=== PATIENT | female | born 1945 | race Caucasian/White ===

== ENCOUNTER → 2023-06-27 06:50 | Outpatient (REF) | payer OTHER, SELFPAY ==
[2023-06-27 10:04] LABS: % Basophils 0.7 % (0-2); % Eosinophils 1.6 % (0-6); % Immature Granulocytes 0.4 % (0-0.5); % Lymphocytes 26.1 % (20.5-51.1); % Monocytes 9.5 % (1.7-9.3); % Neutrophils 61.7 % (42.2-75.2); Absolute Basophils 0.1 10^3/uL (0-0.2); Absolute Eosinophils 0.1 10^3/uL (0-0.7); Absolute Monocytes 0.7 10^3/uL (0.1-0.6); Absolute Neutrophils 4.7 10^3/uL (1.4-6.5); Hematocrit 40.7 % (37.0-47.0); Hemoglobin 13.6 g/dL (12.0-16.0); Mean Corp Hgb Conc. 33.4 g/dL (33.0-37.0); Mean Corpuscular Hgb 28.1 pg (27.0-31.0); Mean Corpuscular Volume 84.1 fL (81.0-99.0); Mean Platelet Volume 9.9 fL (7.4-10.4); Nucleated Red Blood Cells % 0 %; Platelet Count 231 10^3/uL (130-400); Red Blood Cell Count 4.84 10^6/uL (4.20-5.40); Red Cell Dist. Width 13.2 % (11.5-14.5); White Blood Cell Count 7.6 10^3/uL (4.8-10.8)
[2023-06-27 10:15] LABS: ALT (SGPT) 61 U/L (0-35); AST (SGOT) 34 U/L (14-36); Alkaline Phosphatase 68 U/L (38-126); Blood Urea Nitrogen 19 mg/dl (7-17); Calcium 9.4 mg/dl (8.4-10.2); Carbon Dioxide 30 mmol/L (22-30); Chloride 104 mmol/L (98-107); Glucose 112 mg/dl (70-99); Potassium 4.7 mmol/L (3.5-5.1); Sodium 136 mmol/L (135-145); Total Bilirubin 0.9 mg/dl (0.2-1.3); Total Protein 6.6 g/dl (6.3-8.2); eGFR > 60.00
[2023-06-27 10:45] LABS: TSH Reflex To Free T4 1.66 uIU/ml (0.47-4.68)
== END ==
LOC: HWLAB 06:50
PROVIDERS: ATTENDING PHYSICIAN Nurse Practitioner Family
DX: I10 Essential (primary) hypertension (principal); E04.1 Nontoxic single thyroid nodule; R07.9 Chest pain, unspecified; R00.2 Palpitations
CPT/HCPCS: 36415; 80053; 84443; 85025; 93005

== ENCOUNTER 2023-07-07 14:07 | Emergency (ER) | payer OTHER, SELFPAY ==
[2023-07-07 14:10] VITALS: BP 160/83; BMI 22.8
[2023-07-07 14:39] LABS: % Basophils 0.5 % (0-2); % Eosinophils 0.6 % (0-6); % Immature Granulocytes 0.4 % (0-0.5); % Lymphocytes 18.8 % (20.5-51.1); % Neutrophils 71.7 % (42.2-75.2); Absolute Eosinophils 0.1 10^3/uL (0-0.7); Absolute Lymphocytes 1.6 10^3/uL (1.2-3.4); Absolute Monocytes 0.7 10^3/uL (0.1-0.6); Absolute Neutrophils 6.1 10^3/uL (1.4-6.5); Hematocrit 39.9 % (37.0-47.0); Hemoglobin 13.5 g/dL (12.0-16.0); Mean Corp Hgb Conc. 33.8 g/dL (33.0-37.0); Mean Corpuscular Hgb 28.5 pg (27.0-31.0); Mean Corpuscular Volume 84.4 fL (81.0-99.0); Nucleated Red Blood Cells % 0 %; Platelet Count 209 10^3/uL (130-400); Red Blood Cell Count 4.73 10^6/uL (4.20-5.40); Red Cell Dist. Width 13.2 % (11.5-14.5); White Blood Cell Count 8.5 10^3/uL (4.8-10.8)
[2023-07-07 14:56] LABS: ALT (SGPT) 140 U/L (0-35); AST (SGOT) 146 U/L (14-36); Albumin 3.9 g/dl (3.5-5.0); Alkaline Phosphatase 67 U/L (38-126); Blood Urea Nitrogen 18 mg/dl (7-17); Calcium 8.8 mg/dl (8.4-10.2); Carbon Dioxide 22 mmol/L (22-30); Chloride 101 mmol/L (98-107); Estimated Creatinine Clearance 54 ml/min; Glucose 172 mg/dl (70-99); Potassium 4.5 mmol/L (3.5-5.1); Sodium 129 mmol/L (135-145); Total Bilirubin 0.7 mg/dl (0.2-1.3); Total Protein 6.3 g/dl (6.3-8.2); eGFR > 60.00
[2023-07-07 15:02] LABS: Troponin I < 0.012 ng/ml
--- NOTE | 2023-07-07 16:30 | ED.GENMED ---
History of Present Illness
General
Chief Complaint: Blood Pressure Problem
Source: patient
Exam Limitations: none
Time Seen by Provider: 07/07/23 15:47
Nursing documentation reviewed up to this point in time: agreed with
Travel History
Have you had any contact with someone who has COVID-19?: No
Do you have any symptoms of coronavirus? Fever > 100 degrees, chills, cough, shortness of breath, sore throat, loss of taste or smell, muscle aches, or headache?: No
History of Present Illness
History of Present Illness:
77 yr old female presents to the ED with c/o of worsening palpations. She she has had worsening palpitations since April. She called her doctor's office today however was not able to be seen. She describes this as skipping a beat. Today she
felt very dizzy which is what prompted her to come to the ER.She denies any chest pain, shortness of breath. She does note that she has an appointment with her manager care management the first week of July, Dr. Diaz.
Past History
Past History
ED Past Medical History: Arrthythmia (PVCs), Asthma, Cancer (Breast cancer), CVA, GERD, HTN, Hypercholesterolemia, NIDDM, Other (Irritable bowel, osteoporosis, Dupuytren's contracture, vitamin D deficiency, congenital deafness) and Other (arthritis,
Colitis, IBS, )
ED Past Surgical History: Gynecological (partial hysterectomy), Orthopedic (Left toe surgery), Tonsilectomy and Other (Lumpectomy, left breast; hemorrhoidal handing)
Social History
Tobacco: Non-smoker
Alcohol: None
Drug: None
Personal:
Living: with family
Employment: Retired
Family History
Family History: Other (Mother with diabetes and coronary disease, father with hyperglycemia)
Review of Systems
Review of Systems
Allergies reviewed?: Yes
All Other Systems: ROS reviewed and negative except as documented in HPI and ROS
Constitutional: Reports no symptoms; Denies fever, fatigue or chills
EENT: Reports no symptoms
Respiratory: Reports no symptoms; Denies trouble breathing
Cardiac: Reports palpitations; Denies chest pain, diaphoresis or syncope
ABD/GI: Reports no symptoms
: Reports no symptoms
Musculoskeletal: Reports no symptoms
Skin: Reports no symptoms
Neurological: Reports no symptoms
Hematologic/Lymphatic: Reports no symptoms
Psychiatric: Reports no symptoms
Phy Exam
General Physical Exam
General Presentation: no apparent distress
General age: appears stated age
General Skin: warm and dry
General Habitus: normal
General Mental: alert
General Hydration: appears well hydrated
Cardiovascular Exam
Cardiovascular Exam: regular rate/rhythm, no murmur and normal peripheral pulses
Pulmonary Exam
Pulmonary Exam: lungs clear and no respiratory distress
Neurological Exam
Neurological Exam: alert and oriented x3
[place] Coma Scale
Eye Opening: Spontaneous
Verbal Response: Oriented
Motor Response: Obeys Commands
GCS Total Score: 15
Musculoskeletal Exam
Musculoskeletal Exam: full ROM
Skin Exam
Skin Exam: normal color and warm/dry
Psychiatric Exam
Psychiatric Exam: anxious
Course
Orders/Labs/Results
Orders:
Orders
07/07/23 14:14
Electrocardiogram (*1) Urgent
Reason for Study: Chest Pain
EKG- Treatment ONCE
07/07/23 14:26
Complete Blood Count/With Diff Urgent
Comprehensive Metabolic Panel Urgent
Troponin I Urgent
07/07/23 19:07
Add On- LAB Urgent
Tests Added?: serum osmolatity
Abnormal Lab Results
07/07/23
14:26
Absolute Monos (auto) 0.7 H 10^3/uL
(0.1-0.6)
Lymphocytes % 18.8 L %
(20.5-51.1)
Sodium 129 L mmol/L
(135-145)
BUN 18 H mg/dl
(7-17)
Creatinine 0.5 L mg/dL
(0.6-1.0)
Glucose 172 H mg/dl
(70-99)
AST 146 H U/L
(14-36)
ALT 140 H U/L
(0-35)
07/07/23 14:26
07/07/23 14:26
Vital Signs
Initial and Last Documented VS:
Initial Vital Signs
Temp Pulse Resp BP Pulse Ox
98.5 F 65 16 160/83 98
07/07/23 14:10 07/07/23 14:10 07/07/23 14:10 07/07/23 14:10 07/07/23 14:10
Last Documented Vital Signs
Temp Pulse Resp BP Pulse Ox
98.5 F 53 18 131/62 96
07/07/23 14:10 07/07/23 18:15 07/07/23 18:15 07/07/23 18:00 07/07/23 18:15
Crocheter consulted with Physician
Crocheter consulted with physician?: Yes
Name of Physician Consulted: gilbert
MDM/Problems Addressed
Differential Diagnosis Includes:
Not limited to palpitations, arrhythmia, dehydration
MDM/Problems Addressed:
Patient is a 77 old female who has complained of palpitations. She reports she has had intermittent palpitations since April 18. She has appoint with cardiology but not to 17 July. She denies any associated chest pain or shortness breath of the
palpitations. She presents awake alert no acute distress. She does have obvious intermittent PVCs.
Patient however presents awake alert in no acute distress and is nontoxic. She does have a history of hyponatremia and her sodium is again low at 129. She does report she drinks about 60 ounces of liquid a day which includes water and tea. She
feels well enough to go home. Case reviewed with ED physician. Will patient follow-up with her family doctor in the next several days to week for repeat labs, to recheck sodium. Also in addition LFTs are mildly elevated will need to be rechecked.
Will patient follow-up with cardiology, DR Diaz as scheduled for PVCs/palpitations.
Chronic conditions affecting care:
htn. High cholesterol
*Pulse Oximetry
Patient hypoxic: no
*EKG
Interpreted by ED Provider?: Yes
Comparison EKG: changes noted (PVCs are now present)
Heart Rate: 66
Rate: normal
Rhythm: sinus
QRS Pattern: left bundle branch block
Ischemia: no ischemia
*Critical Care Note
Total Time (30-74mins, 75-104mins- exclusive of procedures): Not Applicable
ED Attending Note
-
Portions of this chart may have been created with voice recognition software.� Occasional wrong word or��sound alike� substitutions may have occurred due to the inherent limitations of voice recognition software.
Discharge Plan
Departure
Patient Disposition: Home (Routine Discharge)
Date of Disposition: 07/07/23
Time of Disposition: 19:06
Patient with high blood pressure during this ER visit?: Yes
Condition: Fair
Covid-19: Not Applicable
Discharge Problem:
Palpitations, Premature ventricular contraction, Acute hyponatremia
Instructions: Ventricular premature beats, High Blood Pressure (DC), Hyponatremia (DC)
Prescriptions:
No Action
aspirin 81 MG tablet,chewable
81 mg PO DAILY Qty: 30 0RF
atorvastatin 40 mg tablet
40 mg PO DAILY
ascorbic acid (vitamin C) [Vitamin C] 1,000 mg Tablet
1,000 mg PO DAILY
Theragen Tablet
1 tab PO DAILY
nebivolol 5 mg Tablet
5 mg PO DAILY
coQ10 (ubiquinol) 200 mg Capsule
200 mg PO DAILY
Bone Restore Plus K2
1 tab PO DAILY
pantoprazole [Protonix] 40 mg tablet,delayed release (DR/EC)
40 mg PO DAILY Qty: 30 0RF
Referrals:
Xaveir Diaz MD [Active] -
Federico Galicia MD [Family Provider] -
Activity Restrictions/Additional Instructions:
As discussed please follow-up with your manager care management as scheduled for further evaluation of palpitations and premature ventricular contraction(PVCs).
In addition follow-up with your family doctor for reevaluation of your low sodium. Your sodium was low again today at 129 this level will need to be checked in the next week.
In addition your liver functions are mildly elevated please have this rechecked as well. Return if any worsening of symptoms.
Interventions
Interventions:
*Risk Screen - Suicide Last Done: 07/07/23 14:10
*Neglect/Abuse Screening Last Done: 07/07/23 14:10
ED- Fall Risk Assessment Last Done: 07/07/23 16:42
*ED COVID-19 Vaccine History Last Done: 07/07/23 14:10
ED- Cardiac Assessment Last Done: 07/07/23 16:42
ED- Neurological Assessment Last Done: 07/07/23 16:42
ED- Pulmonary Assessment Last Done: 07/07/23 16:42
[2023-07-07 16:40] VITALS: BP 139/57
[2023-07-07 17:00] VITALS: BP 122/60
[2023-07-07 18:00] VITALS: BP 131/62
== END 2023-07-07 19:48 | disposition home or self-care (01) ==
LOC: EMR 14:07
PROVIDERS: EMERGENCY PHYSICIAN Emergency Medicine; FAMILY PHYSICIAN Internal Medicine Geriatric Medicine
DX: R00.2 Palpitations (principal); I49.3 Ventricular premature depolarization; E87.1 Hypo-osmolality and hyponatremia; I10 Essential (primary) hypertension; E78.00 Pure hypercholesterolemia, unspecified
CPT/HCPCS: 99284; 80053; 84484; 85025; 93005

== ENCOUNTER → 2023-07-27 15:29 | Outpatient (REF) | payer OTHER, SELFPAY | LOC: HWRCS 15:29 | PROVIDERS: ATTENDING PHYSICIAN Internal Medicine Cardiovascular Disease; FAMILY PHYSICIAN Internal Medicine Geriatric Medicine | DX: R01.1 Cardiac murmur, unspecified (principal) | CPT/HCPCS: 93306 ==

== ENCOUNTER → 2023-08-16 13:16 | Outpatient (REF) | payer OTHER, SELFPAY | LOC: HWWDC 13:16 | PROVIDERS: ATTENDING PHYSICIAN Internal Medicine Geriatric Medicine | DX: Z12.31 Encounter for screening mammogram for malignant neoplasm of breast (principal) | CPT/HCPCS: 77063; 77067 ==

== ENCOUNTER → 2023-09-07 07:01 | Outpatient (REF) | payer OTHER, SELFPAY ==
[2023-09-07 09:00] LABS: % Eosinophils 1.8 % (0-6); % Immature Granulocytes 0.5 % (0-0.5); % Monocytes 10.1 % (1.7-9.3); % Neutrophils 54.6 % (42.2-75.2); Absolute Basophils 0.1 10^3/uL (0-0.2); Absolute Eosinophils 0.1 10^3/uL (0-0.7); Absolute Lymphocytes 1.9 10^3/uL (1.2-3.4); Absolute Monocytes 0.6 10^3/uL (0.1-0.6); Absolute Neutrophils 3.3 10^3/uL (1.4-6.5); Hematocrit 40.7 % (37.0-47.0); Hemoglobin 13.8 g/dL (12.0-16.0); Mean Corp Hgb Conc. 33.9 g/dL (33.0-37.0); Mean Corpuscular Hgb 28.5 pg (27.0-31.0); Mean Corpuscular Volume 83.9 fL (81.0-99.0); Mean Platelet Volume 10.1 fL (7.4-10.4); Nucleated Red Blood Cells % 0 %; Platelet Count 209 10^3/uL (130-400); Red Blood Cell Count 4.85 10^6/uL (4.20-5.40); Red Cell Dist. Width 13.1 % (11.5-14.5); Urine Albumin Negative (Neg - Trace); Urine Bilirubin Negative (Negative); Urine Character Clear (Clear); Urine Color Yellow; Urine Glucose Negative (Negative); Urine Ketone Negative (Negative); Urine Leukocyte Negative (Negative); Urine Nitrite Negative (Negative); Urine Occult Blood Negative (Negative); Urine Specific Gravity 1.015 (<1.030); Urine Urobilinogen Negative (Neg - 1+); White Blood Cell Count 6.1 10^3/uL (4.8-10.8)
[2023-09-07 09:36] LABS: Glycohemoglobin (HgbA1c) 6.2 % (4.0-5.6)
[2023-09-07 10:30] LABS: ALT (SGPT) 46 U/L (0-35); AST (SGOT) 34 U/L (14-36); Albumin 4.1 g/dl (3.5-5.0); Alkaline Phosphatase 59 U/L (38-126); Blood Urea Nitrogen 18 mg/dl (7-17); Calcium 9.6 mg/dl (8.4-10.2); Carbon Dioxide 29 mmol/L (22-30); Chloride 103 mmol/L (98-107); Glucose 102 mg/dl (70-99); Potassium 4.7 mmol/L (3.5-5.1); Sodium 138 mmol/L (135-145); Total Cholesterol 219 mg/dl (50-199); Total Protein 6.7 g/dl (6.3-8.2); Triglyceride 46 mg/dl (10-149); Very Low Density Lipoprotein 9 mg/dl (0-30); eGFR > 60.00
[2023-09-07 10:42] LABS: HDL Cholesterol 118 mg/dl; LDL Cholesterol, Calculated 92 mg/dl
[2023-09-07 10:46] LABS: Vitamin D, 25-OH*** 57.6 ng/mL (30-80)
== END ==
LOC: HWLAB 07:01
PROVIDERS: ATTENDING PHYSICIAN Internal Medicine Geriatric Medicine
DX: I10 Essential (primary) hypertension (principal); E11.9 Type 2 diabetes mellitus without complications; R01.1 Cardiac murmur, unspecified; E55.9 Vitamin D deficiency, unspecified; Z85.3 Personal history of malignant neoplasm of breast; E04.1 Nontoxic single thyroid nodule; E78.2 Mixed hyperlipidemia; R00.2 Palpitations; R10.11 Right upper quadrant pain; I49.3 Ventricular premature depolarization; Z13.89 Encounter for screening for other disorder; Z13.31 Encounter for screening for depression; F41.9 Anxiety disorder, unspecified; K21.9 Gastro-esophageal reflux disease without esophagitis; M85.89 Other specified disorders of bone density and structure, multiple sites; G56.23 Lesion of ulnar nerve, bilateral upper limbs; R07.9 Chest pain, unspecified; K20.90 Esophagitis, unspecified without bleeding; M79.672 Pain in left foot
CPT/HCPCS: 36415; 80053; 80061; 81003; 82306; 83036; 85025

== ENCOUNTER → 2023-11-04 09:17 | Outpatient (REF) | payer OTHER, SELFPAY | LOC: HWRAD 09:17 | PROVIDERS: ATTENDING PHYSICIAN Nurse Practitioner Family | DX: R07.81 Pleurodynia (principal); I10 Essential (primary) hypertension; I49.3 Ventricular premature depolarization | CPT/HCPCS: 71101; 93005 ==

== ENCOUNTER → 2024-04-16 06:35 | Outpatient (REF) | payer OTHER, SELFPAY ==
[2024-04-16 09:41] LABS: ALT (SGPT) 35 U/L (0-35); AST (SGOT) 29 U/L (14-36); Albumin 3.9 g/dl (3.5-5.0); Alkaline Phosphatase 37 U/L (38-126); Blood Urea Nitrogen 19 mg/dl (7-17); Calcium 9.3 mg/dl (8.4-10.2); Carbon Dioxide 27 mmol/L (22-30); Chloride 102 mmol/L (98-107); Glucose 103 mg/dl (70-99); HDL Cholesterol 104 mg/dl; LDL Cholesterol, Calculated 112 mg/dl; Potassium 4.3 mmol/L (3.5-5.1); Sodium 136 mmol/L (135-145); Total Bilirubin 0.9 mg/dl (0.2-1.3); Total Cholesterol 229 mg/dl (50-199); Total Protein 6.4 g/dl (6.3-8.2); Triglyceride 67 mg/dl (10-149); Very Low Density Lipoprotein 13 mg/dl (0-30); eGFR > 60.00
[2024-04-16 09:46] LABS: % Eosinophils 1.6 % (0-6); % Immature Granulocytes 0.3 % (0-0.5); % Lymphocytes 34.4 % (20.5-51.1); % Monocytes 9.4 % (1.7-9.3); % Neutrophils 53.3 % (42.2-75.2); Absolute Basophils 0.1 10^3/uL (0-0.2); Absolute Eosinophils 0.1 10^3/uL (0-0.7); Absolute Lymphocytes 2.2 10^3/uL (1.2-3.4); Absolute Monocytes 0.6 10^3/uL (0.1-0.6); Absolute Neutrophils 3.3 10^3/uL (1.4-6.5); Hematocrit 42.9 % (37.0-47.0); Hemoglobin 13.9 g/dL (12.0-16.0); Mean Corp Hgb Conc. 32.4 g/dL (33.0-37.0); Mean Corpuscular Hgb 28.6 pg (27.0-31.0); Mean Corpuscular Volume 88.3 fL (81.0-99.0); Mean Platelet Volume 9.9 fL (7.4-10.4); Nucleated Red Blood Cells % 0 %; Platelet Count 208 10^3/uL (130-400); Red Blood Cell Count 4.86 10^6/uL (4.20-5.40); Red Cell Dist. Width 12.9 % (11.5-14.5); White Blood Cell Count 6.3 10^3/uL (4.8-10.8)
[2024-04-16 09:55] LABS: Vitamin D, 25-OH*** 50.1 ng/mL (30-80)
[2024-04-16 10:08] LABS: TSH 1.86 uIU/ml (0.47-4.68)
== END ==
LOC: HWLAB 06:35
PROVIDERS: ATTENDING PHYSICIAN Internal Medicine Geriatric Medicine
DX: E78.2 Mixed hyperlipidemia (principal); E55.9 Vitamin D deficiency, unspecified; I10 Essential (primary) hypertension; E11.9 Type 2 diabetes mellitus without complications; R01.1 Cardiac murmur, unspecified; Z85.3 Personal history of malignant neoplasm of breast; E04.1 Nontoxic single thyroid nodule; R00.2 Palpitations; F41.9 Anxiety disorder, unspecified; I49.3 Ventricular premature depolarization
CPT/HCPCS: 36415; 80053; 80061; 82306; 84443; 85025

== ENCOUNTER → 2024-07-25 09:06 | Outpatient (REF) | payer OTHER, SELFPAY ==
[2024-07-25 13:08] LABS: Microalbumin, Random Urine 0.9 mg/dl (0.6-1.7); Microalbumin/creatinine Ratio 10.5 mg/g
== END ==
LOC: HWLAB 09:06
PROVIDERS: ATTENDING PHYSICIAN Internal Medicine Geriatric Medicine
DX: E87.6 Hypokalemia (principal)
CPT/HCPCS: 82043; 82570

== ENCOUNTER → 2024-11-16 09:17 | Outpatient (REF) | payer OTHER, SELFPAY ==
[2024-11-16 12:29] LABS: Hematocrit 42.2 % (37.0-47.0); Hemoglobin 13.8 g/dL (12.0-16.0); Mean Corp Hgb Conc. 32.7 g/dL (33.0-37.0); Mean Corpuscular Volume 87.0 fL (81.0-99.0); Nucleated Red Blood Cells % 0 %; Platelet Count 216 10^3/uL (130-400); Red Cell Dist. Width 12.9 % (11.5-14.5)
[2024-11-16 13:03] LABS: ALT (SGPT) 85 U/L (0-35); AST (SGOT) 42 U/L (14-36); Albumin 4.0 g/dl (3.5-5.0); Alkaline Phosphatase 43 U/L (38-126); Blood Urea Nitrogen 20 mg/dl (7-17); Calcium 9.7 mg/dl (8.4-10.2); Carbon Dioxide 31 mmol/L (22-30); Chloride 102 mmol/L (98-107); Glucose 106 mg/dl (70-99); Potassium 5.1 mmol/L (3.5-5.1); Sodium 135 mmol/L (135-145); Total Protein 6.5 g/dl (6.3-8.2); eGFR > 60.00
== END ==
LOC: HWLAB 09:17
PROVIDERS: ATTENDING PHYSICIAN Nurse Practitioner Family; FAMILY PHYSICIAN Internal Medicine Geriatric Medicine
DX: R10.11 Right upper quadrant pain (principal)
CPT/HCPCS: 36415; 80053; 85025

== ENCOUNTER → 2024-11-19 07:13 | Outpatient (REF) | payer OTHER, SELFPAY | LOC: HWRAD 07:13 | PROVIDERS: ATTENDING PHYSICIAN Nurse Practitioner Family | DX: R10.11 Right upper quadrant pain (principal) | CPT/HCPCS: 76700 ==

== ENCOUNTER → 2025-04-08 06:42 | Outpatient (REF) | payer OTHER, SELFPAY ==
[2025-04-08 09:50] LABS: Hematocrit 41.3 % (37.0-47.0); Hemoglobin 14.0 g/dL (12.0-16.0); Mean Corp Hgb Conc. 33.9 g/dL (33.0-37.0); Mean Corpuscular Volume 85.0 fL (81.0-99.0); Nucleated Red Blood Cells % 0 %; Platelet Count 234 10^3/uL (130-400); Red Cell Dist. Width 12.7 % (11.5-14.5)
[2025-04-08 10:35] LABS: Urine Character Clear (Clear)
[2025-04-08 10:43] LABS: ALT (SGPT) 40 U/L (0-35); AST (SGOT) 31 U/L (14-36); Albumin 4.1 g/dl (3.5-5.0); Alkaline Phosphatase 49 U/L (38-126); Blood Urea Nitrogen 15 mg/dl (7-17); Calcium 9.5 mg/dl (8.4-10.2); Carbon Dioxide 27 mmol/L (22-30); Chloride 103 mmol/L (98-107); Glucose 102 mg/dl (70-99); HDL Cholesterol 102 mg/dl; LDL Cholesterol, Calculated 112 mg/dl; Potassium 4.7 mmol/L (3.5-5.1); Sodium 134 mmol/L (135-145); Total Protein 6.8 g/dl (6.3-8.2); Very Low Density Lipoprotein 11 mg/dl (0-30); eGFR > 60.00
[2025-04-08 11:03] LABS: Urine Squamous Cell 16-20 /LPF (Few); Urine Urothelial Cell 0-2 /LPF (FEW)
[2025-04-08 11:04] LABS: Urine Red Blood Cell 0-2 /HPF (0-2)
[2025-04-08 12:36] LABS: Glycohemoglobin (HgbA1c) 6.1 % (4.0-5.9)
[2025-04-08 13:18] LABS: Vitamin D, 25-OH*** 48.6 ng/mL (30-80)
== END ==
LOC: HWLAB 06:42
PROVIDERS: ATTENDING PHYSICIAN Internal Medicine Geriatric Medicine
DX: Z00.00 Encounter for general adult medical examination without abnormal findings (principal); I10 Essential (primary) hypertension; E11.9 Type 2 diabetes mellitus without complications; E78.2 Mixed hyperlipidemia; E55.9 Vitamin D deficiency, unspecified; R74.8 Abnormal levels of other serum enzymes
CPT/HCPCS: 36415; 80053; 80061; 81003; 81015; 82306; 83036; 84443; 85025